=== PATIENT | female | born 1985 | race Caucasian/White ===

== ENCOUNTER 2021-12-01 12:10 | Emergency (ER) | payer OTHER ==
[2021-12-01 13:36] LABS: HEMOGLOBIN 14.9 gm/dl (12.3-15.3); RED BLOOD COUNT 4.79 M/UL (4.00-5.10); WHITE BLOOD COUNT 12.7 K/UL (4.5-11.0)
[2021-12-01] MEDS ORDERED: AMOX TR-K CLV1 EAC4 PO (13:38)
== END 2021-12-01 14:17 | disposition home or self-care (01) ==
LOC: ER1 12:10
PROVIDERS: Physician Assistant
DX: H66.92 Otitis media, unspecified, left ear (principal)
CPT/HCPCS: 70450; 85025; 85652; 99283